=== PATIENT | male | born 1950 | race Caucasian/White ===

== ENCOUNTER → 2019-09-19 | Outpatient (CLI) | payer MEDICARE, OTHER ==
[~2019-09-19] MED LIST: ACET325T14 PO; METF500T17 PO; METH500T7 PO; OMEP-110 PO; PRAV40TA2 PO; PREG100C PO; SAXA5TAB PO; SEMA0.25 INJ; SERT50TA28 PO; TRAM50TA2 PO; VARD10TA PO
[2019-09-19 15:01] LABS: MICROSCOPIC NOT IND
[2019-09-19 15:03] LABS: CULTURE INDICATED? NO
[2019-09-19 15:07] LABS: BASOPHILS # (AUTO) 0.05 x10^3/uL (0-0.1); BASOPHILS % (AUTO) 1 % (0-1); EOSINOPHILS % (AUTO) 3 % (1-7); LYMPHOCYTES # (AUTO) 1.78 x10^3/uL (1-3.4); LYMPHOCYTES % (AUTO) 29 % (22-44); MD NO; MEAN CORPUSCULAR HEMOGLOBIN 30.7 pg (27.5-34.5); MEAN CORPUSCULAR HGB CONC 33.8 g/dL (33.2-36.2); MEAN CORPUSCULAR VOLUME 90.6 fL (81-97); MEAN PLATELET VOLUME 7.1 fL (7.4-10.4); MONOCYTES # (AUTO) 0.65 x10^3/uL (0.2-0.8); MONOCYTES % (AUTO) 11 % (2-9); NEUTROPHILS # (AUTO) 3.46 x10^3/uL (1.8-6.8); NEUTROPHILS % (AUTO) 56 % (42-75); PLATELET COUNT 207 x10^3/uL (130-400); RED BLOOD COUNT 4.84 x10^6/uL (4.38-5.82); RED CELL DISTRIBUTION WIDTH 13.5 % (9.4-14.8)
[2019-09-19 15:10] LABS: INTERNATIONAL NORMALIZED RATIO 1.01 (0.93-1.1); PROTHROMBIN TIME 10.6 Seconds (9.6-11.5)
[2019-09-19 15:13] LABS: ALBUMIN 4.4 g/dL (3.4-5.0); ANION GAP 8 mmol/L (5-15); CALCIUM 9.5 mg/dL (8.5-10.1); CHLORIDE 106 mmol/L (98-107)
[2019-09-19 15:16] LABS: ALANINE AMINOTRANSFERASE 18 U/L (12-78); ALKALINE PHOSPHATASE 116 U/L (45-117); BILIRUBIN,TOTAL 0.5 mg/dL (0.2-1.0); CREATININE 1.18 mg/dL (0.7-1.3); TOTAL PROTEIN 8.7 g/dL (6.4-8.2)
== END | disposition home or self-care (01) ==
LOC: STAR 13:14
PROVIDERS: ATTEND Neurological Surgery
DX: Z01.812 Encounter for preprocedural laboratory examination (principal); M48.02 Spinal stenosis, cervical region; R79.1 Abnormal coagulation profile; R94.31 Abnormal electrocardiogram [ECG] [EKG]; R82.90 Unspecified abnormal findings in urine; J44.9 Chronic obstructive pulmonary disease, unspecified
CPT/HCPCS: 36415; 71046; 80053; 81003; 85025; 85610; 85730; 93005

== ENCOUNTER 2019-10-04 05:26 | Inpatient (IN) | payer MEDICARE, OTHER ==
[~2019-10-04] VITALS: Ht 193 cm; Wt 95.8 kg
[2019-10-04 06:18] VITALS: BP 122/75
[2019-10-04] MEDS ORDERED: LACTATED RINGERS 1,000 ML IV SCH (06:21)
[2019-10-04] MEDS ORDERED: BACITRACIN 50,000 UNIT ONE (06:23)
[2019-10-04] MEDS ORDERED: THROMBIN 5,000 UNIT VIAL TP ONE (06:23)
[2019-10-04] MEDS ORDERED: EPINEPHRINE 1 MG/ML, 1ML ONE (06:23)
[2019-10-04] MEDS ORDERED: BUPIVACAINE/PF 0.5% ONE (06:23)
[2019-10-04] MEDS ORDERED: SUCCINYLCHOLINE 20 MG/ML, 10ML ONE (06:35)
[2019-10-04] MEDS ORDERED: PROPOFOL 10 MG/ML, 20ML ONE (06:35)
[2019-10-04] MEDS ORDERED: LIDOCAINE-MPF 2% ,5ML ONE (06:35)
[2019-10-04] MEDS ORDERED: FENTANYL PF 250 MCG/5ML ONE (06:37)
[2019-10-04] MEDS ORDERED: MIDAZOLAM 1 MG/ML, 2ML ONE (06:37)
[2019-10-04] MEDS ORDERED: REMIFENTANIL 2 MG ONE (06:38)
[2019-10-04] MEDS ORDERED: PROPOFOL 50 ML ONE ×2 (06:38→07:53)
[2019-10-04] MEDS ORDERED: DEXAMETHASONE 4 MG/ML, 1ML ONE (07:09)
[2019-10-04] MEDS ORDERED: PHENYLEPHRINE 10 MG/ML ONE (07:09)
[2019-10-04] MEDS ORDERED: CEFAZOLIN 1,000 MG ONE (07:09)
[2019-10-04] MEDS ORDERED: ONDANSETRON 2MG/ML, 2ML ONE ×2 (08:39)
[2019-10-04] MEDS ORDERED: HALOPERIDOL 5 MG/ML IV PRN (09:00)
[2019-10-04] MEDS ORDERED: hydrALAzine 20 MG/ML, 1ML IV PRN (09:00)
[2019-10-04] MEDS ORDERED: LABETALOL 5MG/ML, 20ML IV PRN (09:00)
[2019-10-04] MEDS ORDERED: METHOCARBAMOL 1,000 MG in DEXTROSE 5% 100 ML IV PRN (09:00)
[2019-10-04] MEDS ORDERED: OXYcodone 5 MG/5 ML ORAL.SOL UDC PO PRN (09:00)
[2019-10-04] MEDS ORDERED: ALBUTEROL/IPRATROPIUM 2.5MG/0.5MG, 3 ML NPPB PRN (09:00)
[2019-10-04] MEDS ORDERED: PROMETHAZINE 25 MG/ML, 1ML IV PRN (09:00)
[2019-10-04] MEDS ORDERED: ACETAMINOPHEN 325 MG TABLET PO PRN (09:00)
[2019-10-04] MEDS ORDERED: HYDROmorphone 2 MG/ML, 1ML IVPush PRN (09:00)
[2019-10-04] MEDS ORDERED: MEPERIDINE/PF 25MG/ML,1ML IVPush PRN (09:00)
[2019-10-04] MEDS ORDERED: SENNA/DOCUSATE TABLET PO PRN (09:30)
[2019-10-04] MEDS ORDERED: METHOCARBAMOL 750 MG TABLET PO PRN (09:30)
[2019-10-04] MEDS ORDERED: MAGNESIUM HYDROXIDE 8%, 30ML UDC PO PRN (09:30)
[2019-10-04] MEDS ORDERED: ONDANSETRON 2MG/ML, 2ML IVPush PRN (09:30)
[2019-10-04] MEDS ORDERED: OXYcodone/APAP 5/325MG TABLET PO PRN (09:30)
[2019-10-04] MEDS ORDERED: CYCLOBENZAPRINE 10 MG TABLET PO PRN (09:30)
[2019-10-04] MEDS ORDERED: PROMETHAZINE 25 MG/ML, 1ML IM PRN (09:30)
[2019-10-04] MEDS ORDERED: SEMAGLUTIDE SC SCH ×2 (09:30→11:23)
[2019-10-04] MEDS ORDERED: PHARMACY MAY ADJ FOR RENAL FX MC PRN (09:30)
[2019-10-04] MEDS ORDERED: HYDROcodone/APAP 5/325 TABLET PO PRN (09:30)
[2019-10-04] MEDS ORDERED: morphine SULFATE 10 MG/ML, 1ML IVPush PRN (09:30)
[2019-10-04] MEDS ORDERED: INSULIN REGULAR 100 UNITS/ML, 3ML VIAL SQ-INSULIN PRN (09:30)
[2019-10-04] MEDS ORDERED: DIPHENHYDRAMINE 50 MG/ML, 1ML IVPush PRN (09:30)
[2019-10-04] MEDS ORDERED: ACETAMINOPHEN 650 MG/20.3 ML UDC ONE (10:00)
[2019-10-04] MEDS ORDERED: FENTANYL PF 100 MCG/2ML ONE ×2 (10:01→10:19)
[2019-10-04] MEDS ORDERED: OXYcodone 5 MG/5 ML ORAL.SOL UDC ONE (10:02)
[2019-10-04] MEDS: FENTANYL PF 100 MCG/2ML IV PRN ×4 (10:06→10:31)
[2019-10-04] MEDS: INSULIN REGULAR 100 UNITS/ML, 3ML VIAL SQ-INSULIN SCH ×3 (11:00→21:03)
[2019-10-04 11:23] VITALS: BP 127/81
[2019-10-04] MEDS: NS + 20MEQ KCL 1,000 ML IV SCH ×2 (12:15→23:41)
[2019-10-04 14:07] VITALS: BP 147/83
[2019-10-04] MEDS: HYDROcodone/APAP 10/325 MG TABLET PO PRN ×2 (14:20→19:08)
[2019-10-04] MEDS: CEFAZOLIN PMX 1GM/50ML 50 ML IVPB SCH ×2 (15:56→23:37)
[2019-10-04] MEDS: metFORMIN 500 MG TABLET PO SCH (16:43)
[2019-10-04 19:21] VITALS: BP 147/81
[2019-10-04] MEDS: SODIUM CHLORIDE FLUSH 10ML SYR IVF SCH (20:56)
[2019-10-04] MEDS: PREGABALIN 100 MG CAPSULE PO SCH (21:00)
[2019-10-04] MEDS ORDERED: metFORMIN 500 MG TABLET PO SCH (21:00)
[2019-10-04] MEDS ORDERED: PRAVASTATIN 40 MG TABLET PO SCH (21:00)
[2019-10-05 00:30] VITALS: BP 130/81
[2019-10-05] MEDS: HYDROcodone/APAP 10/325 MG TABLET PO PRN ×2 (03:01→07:50)
[2019-10-05 03:16] VITALS: BP 138/80
[2019-10-05 07:21] VITALS: BP 130/81
[2019-10-05] MEDS: PREGABALIN 100 MG CAPSULE PO SCH (07:49)
[2019-10-05] MEDS: metFORMIN 500 MG TABLET PO SCH (07:49)
[2019-10-05] MEDS: INSULIN REGULAR 100 UNITS/ML, 3ML VIAL SQ-INSULIN SCH (07:49)
[2019-10-05] MEDS ORDERED: VARDENAFIL HCL 20 MG HOMEMEDPO SCH (09:00)
[2019-10-05] MEDS ORDERED: SERTRALINE 50MG TABLET PO SCH (09:00)
[2019-10-05] MEDS: SODIUM CHLORIDE FLUSH 10ML SYR IVF SCH (09:00)
[2019-10-05] MEDS ORDERED: OMEPRAZOLE 20 MG CAPSULE.DR PO SCH (09:00)
[2019-10-05] MEDS ORDERED: OXYC-302 PO (10:56)
== END 2019-10-05 11:15 | disposition home or self-care (01) | DRG 472 ==
LOC: ORIP 05:26 → 4NE 11:10 → DCLOUNGE 10-05 11:05
PROVIDERS: ADMIT Neurological Surgery; ATTEND Neurological Surgery
PROC: 00NW0ZZ Release Cervical Spinal Cord, Open Approach (ICD-10-PCS; 2019-10-04)
PROC: 0RB30ZZ Excision of Cervical Vertebral Disc, Open Approach (ICD-10-PCS; 2019-10-04)
PROC: 4A11X4G Monitoring of Peripheral Nervous Electrical Activity, Intraoperative, External Approach (ICD-10-PCS; 2019-10-04)
PROC: 01N10ZZ Release Cervical Nerve, Open Approach (ICD-10-PCS; 2019-10-04)
PROC: 0RG20A0 Fusion of 2 or more Cervical Vertebral Joints with Interbody Fusion Device, Anterior Approach, Anterior Column, Open Approach (ICD-10-PCS; principal; 2019-10-04 07:00)
DX: M48.02 Spinal stenosis, cervical region (principal); M47.12 Other spondylosis with myelopathy, cervical region; M25.78 Osteophyte, vertebrae; M50.321 Other cervical disc degeneration at C4-C5 level; M40.50 Lordosis, unspecified, site unspecified; M47.22 Other spondylosis with radiculopathy, cervical region; E11.9 Type 2 diabetes mellitus without complications; K21.9 Gastro-esophageal reflux disease without esophagitis; J44.9 Chronic obstructive pulmonary disease, unspecified; M19.90 Unspecified osteoarthritis, unspecified site; F32.9 Major depressive disorder, single episode, unspecified
CPT/HCPCS: 36415; 72040; J3490; S0020; 82962; 86850; 86900; C1713; G0378; J0171; J0690; J1100; J1815; J2250; J2405; J2704; J3010; J3480; C1762; J0330; J2370; J7120

== ENCOUNTER → 2020-01-09 | Outpatient (CLI) | payer OTHER ==
[~2020-01-09] MED LIST changes: +OXYC-302 PO; +OXYC5CAP2 PO
[2020-01-09 14:39] LABS: ALBUMIN 4.2 g/dL (3.4-5.0); ANION GAP 9 mmol/L (5-15); CALCIUM 9.4 mg/dL (8.5-10.1); CHLORIDE 106 mmol/L (98-107)
[2020-01-09 14:41] LABS: INTERNATIONAL NORMALIZED RATIO 0.97 (0.93-1.1); PROTHROMBIN TIME 10.3 Seconds (9.6-11.5)
[2020-01-09 14:42] LABS: BASOPHILS # (AUTO) 0.08 x10^3/uL (0-0.1); BASOPHILS % (AUTO) 1 % (0-1); EOSINOPHILS # (AUTO) 0.18 x10^3/uL (0-0.4); EOSINOPHILS % (AUTO) 3 % (1-7); LYMPHOCYTES # (AUTO) 1.62 x10^3/uL (1-3.4); LYMPHOCYTES % (AUTO) 23 % (22-44); MD NO; MEAN CORPUSCULAR HEMOGLOBIN 30.9 pg (27.5-34.5); MEAN CORPUSCULAR HGB CONC 34.9 g/dL (33.2-36.2); MEAN CORPUSCULAR VOLUME 88.6 fL (81-97); MEAN PLATELET VOLUME 7.4 fL (7.4-10.4); MONOCYTES # (AUTO) 0.62 x10^3/uL (0.2-0.8); MONOCYTES % (AUTO) 9 % (2-9); NEUTROPHILS # (AUTO) 4.59 x10^3/uL (1.8-6.8); NEUTROPHILS % (AUTO) 65 % (42-75); PLATELET COUNT 212 x10^3/uL (130-400); RED BLOOD COUNT 4.77 x10^6/uL (4.38-5.82); RED CELL DISTRIBUTION WIDTH 14.1 % (9.4-14.8)
[2020-01-09 14:44] LABS: ALANINE AMINOTRANSFERASE 18 U/L (12-78); ALKALINE PHOSPHATASE 112 U/L (45-117); BILIRUBIN,TOTAL 0.4 mg/dL (0.2-1.0); CREATININE 1.15 mg/dL (0.7-1.3); TOTAL PROTEIN 8.5 g/dL (6.4-8.2)
[2020-01-09 14:46] LABS: MICROSCOPIC AUTO
[2020-01-09 14:56] LABS: CULTURE INDICATED? YES
== END | disposition home or self-care (01) ==
LOC: STAR 13:12
PROVIDERS: ATTEND Neurological Surgery
DX: Z01.818 Encounter for other preprocedural examination (principal); M47.816 Spondylosis without myelopathy or radiculopathy, lumbar region
CPT/HCPCS: 36415; 71046; 72110; 80053; 81001; 85025; 85610; 85730; 87086; 93005